=== PATIENT | female | born 1940 | race Two or more races ===

== ENCOUNTER 2016-04-03 13:30 | Outpatient (RCR) | payer MEDICARE ==
[~2016-04-03 13:30] MED LIST: ASPIRIN-LOW81 MG ORAL; CENTRUM SILVER1 EAC4 PO; VITAMIN D1000 UNI1 ORAL
== END 2016-04-09 | disposition home or self-care (01) ==
LOC: PTY 13:30
DX: Z74.09 Other reduced mobility (principal)
CPT/HCPCS: 97110; 97162; G8978; G8979

== ENCOUNTER → 2016-04-16 | Outpatient (CLI) | payer MEDICARE ==
--- NOTE | 2016-04-17 08:47 | Diagnostic Imaging Report ---
Indication: COUGH Technique: Two views of the chest Comparison: Of 27/09/2015 Findings: Better inspiration currently. Interim increase in size of previously reported multiple bilateral pulmonary nodules. The largest, in the right upper lobe, currently measures 5 cm long axis dimension, previously 4.6. Second largest, at the right lung base, currently measures 4.9 cm, previously 4.5. No acute infiltrates. No effusions. The heart size is normal. There is a right arm port catheter again demonstrated, tip projected at the level of the high right atrium. Left lung calcified granuloma is again demonstrated Impression: No acute process Enlarging bilateral pulmonary nodules, presumably enlarging metastatic deposits. Correlate with clinical history
== END | disposition home or self-care (01) ==
LOC: RAD 12:38
DX: J69.0 Pneumonitis due to inhalation of food and vomit (principal); R91.8 Other nonspecific abnormal finding of lung field
CPT/HCPCS: 71020